=== PATIENT | male | born 1940 | race Caucasian/White ===

== ENCOUNTER 2024-10-29 11:39 | Emergency (ER) | payer BC, OTHER ==
[2024-10-29 13:08] VITALS: BP 106/69; PULSE 79; RESP 18; TEMP 99.1; BMI 27.1
[2024-10-29] MEDS: SODIUM CHLORIDE 0.9% 500 ML INFUS.BAG IV ONE (13:14)
[2024-10-29 13:40] LABS: ABSOLUTE IMMATURE GRANULOCYTES 0.04 x10^3/uL (0.0-0.031); BASOPHILS # 0.04 x10^3/uL (0.01-0.08); EOSINOPHIL % 0.8 % (0.8-7.0); EOSINOPHILS # 0.10 x10^3/uL (0.04-0.54); MCHC 32.7 g/dl (32.3-36.5); MEAN CELL VOLUME 98.8 fl (79.0-92.2); MEAN PLT VOLUME 10.1 fl (9.4-12.4); MONOCYTE # 1.14 x10^3/uL (0.30-0.82); MONOCYTE % 9.4 % (5.3-12.2); RDW 14.4 % (12.6-16.6)
[2024-10-29 14:11] LABS: CO2 26.0 mmol/L (21-32)
[2024-10-29 14:12] LABS: GLUCOSE,RANDOM 97.0 mg/dL (74-106)
[2024-10-29 14:14] LABS: SGPT/ALT 26.0 U/L (13-61)
[2024-10-29 14:15] LABS: CREATININE 1.0 mg/dL (0.55-1.3); SGOT/AST 22.0 U/L (15-37)
[2024-10-29 14:16] LABS: TOT PROT 7.3 g/dl (6.4-8.2)
[2024-10-29 14:17] LABS: ALK PHOS 92.0 U/L (45-117)
== END 2024-10-29 15:05 | disposition home or self-care (01) ==
LOC: JER 11:39
DX: T67.5XXA Heat exhaustion, unspecified, initial encounter (principal); R61 Generalized hyperhidrosis; R41.3 Other amnesia; Z91.83 Wandering in diseases classified elsewhere
CPT/HCPCS: 36415; 80053; 82550; 82553; 83735; 83880; 84484; 85025; 93005; 93010; 99284-25